=== PATIENT | female | born 1945 | race Caucasian/White ===

== ENCOUNTER → 2017-05-03 | Outpatient (CLI) | payer OTHER | END | disposition home or self-care (01) | LOC: RD 15:15 | DX: M25.561 Pain in right knee (principal) ==

== ENCOUNTER → 2020-07-25 | Outpatient (CLI) | payer OTHER | END | disposition home or self-care (01) | LOC: MI 07-21 15:30 | PROVIDERS: ATTEND Orthopaedic Surgery | PROC: BQ37ZZZ Magnetic Resonance Imaging (MRI) of Right Knee (ICD-10-PCS; principal; 2020-07-25) | DX: M25.561 Pain in right knee (principal) ==

== ENCOUNTER 2020-09-14 06:12 | Day surgery (SDC) | payer OTHER ==
[2020-09-09 13:19] LABS: CALCIUM 8.6 mg/dL (8.5-10.1); CARBON DIOXIDE 26.3 mmol/L (21-32); CHLORIDE SERUM 101 mmol/L (98-107); CREATININE SERUM 0.7 mg/dL (0.6-1.0); GLUCOSE SERUM 89 mg/dL (74-106); POTASSIUM SERUM 3.7 mmol/L (3.5-5.1); SODIUM SERUM 136 mmol/L (136-145)
[~2020-09-14] VITALS: Ht 160 cm; Wt 71.7 kg
[2020-09-14 06:44] VITALS: BP 118/74
[2020-09-14 12:16] VITALS: BP 142/82
== END 2020-09-14 12:00 | disposition home or self-care (01) ==
LOC: OR → DS 06:12 → OR 07:30 → DS 12:00
PROVIDERS: ATTEND Orthopaedic Surgery
DX: S83.271A Complex tear of lateral meniscus, current injury, right knee, initial encounter (principal); S83.231A Complex tear of medial meniscus, current injury, right knee, initial encounter; I10 Essential (primary) hypertension; E78.5 Hyperlipidemia, unspecified; L85.9 Epidermal thickening, unspecified; Z79.899 Other long term (current) drug therapy; Z88.5 Allergy status to narcotic agent; Z98.891 History of uterine scar from previous surgery; X58.XXXA Exposure to other specified factors, initial encounter; Y93.89 Activity, other specified; Y92.89 Other specified places as the place of occurrence of the external cause; Y99.8 Other external cause status
CPT/HCPCS: J0171; J0690; J3010; J3301; J3490; Q0092